=== PATIENT | male | born 1950 | race Caucasian/White ===

== ENCOUNTER → 2023-08-18 08:04 | Outpatient (REF) | payer MEDICARE, BC, SELFPAY | LOC: HWRAD 08:04 | PROVIDERS: ATTENDING PHYSICIAN Physician Assistant; FAMILY PHYSICIAN Family Medicine | DX: N40.1 Benign prostatic hyperplasia with lower urinary tract symptoms (principal) | CPT/HCPCS: 76770 ==

== ENCOUNTER 2024-04-04 14:41 | Emergency (ER) | payer MEDICARE, BC, SELFPAY ==
[2024-04-04 14:49] VITALS: BP 156/98
[2024-04-04 15:32] LABS: % Basophils 0.5 % (0-2); % Eosinophils 0.2 % (0-6); % Lymphocytes 30.6 % (20.5-51.1); % Monocytes 5.7 % (1.7-9.3); Absolute Basophils 0.1 10^3/uL (0-0.2); Absolute Immature Granulocytes 0.2 10^3/uL (0-0.05); Absolute Lymphocytes 4.9 10^3/uL (1.2-3.4); Absolute Monocytes 0.9 10^3/uL (0.1-0.6); Hematocrit 48.4 % (39.0-52.0); Hemoglobin 16.3 g/dL (13.0-18.0); Mean Corp Hgb Conc. 33.7 g/dL (33.0-37.0); Mean Corpuscular Hgb 31.1 pg (27.0-31.0); Mean Corpuscular Volume 92.4 fL (80.0-94.0); Mean Platelet Volume 10.5 fL (7.4-10.4); Nucleated Red Blood Cells % 0 % (-); Platelet Count 294 10^3/uL (130-400); Red Blood Cell Count 5.24 10^6/uL (4.70-6.10); Red Cell Dist. Width 12.5 % (11.5-14.5); White Blood Cell Count 16.1 10^3/uL (4.8-10.8)
[2024-04-04 15:38] LABS: ALT (SGPT) 48 U/L (0-50); AST (SGOT) 32 U/L (17-59); Albumin 4.6 g/dl (3.5-5.0); Alkaline Phosphatase 87 U/L (38-126); Blood Urea Nitrogen 19 mg/dl (9-20); Carbon Dioxide 28 mmol/L (22-30); Chloride 103 mmol/L (98-107); Glucose 166 mg/dl (70-99); Potassium 4.1 mmol/L (3.5-5.1); Sodium 141 mmol/L (135-145); Total Bilirubin 0.7 mg/dl (0.2-1.3); Total Protein 6.8 g/dl (6.3-8.2); eGFR > 60.00
[2024-04-04 16:06] LABS: TSH Reflex To Free T4 1.92 uIU/ml (0.47-4.68)
[2024-04-04 16:13] VITALS: BP 166/91
--- NOTE | 2024-04-04 18:29 | ED.GENMED ---
History of Present Illness
General
Chief Complaint: Heart Rate Problem
Source: patient
Exam Limitations: none
Time Seen by Provider: 04/04/24 17:58
History of Present Illness
History of Present Illness:
73-year-old male presents with palpitations. He noticed it today getting worse. He has been dealing with similar sensation but not as frequent. He sees cardiology and is on atenolol 25 mg twice a day. He also is having difficulties with his
prostate. He states he is getting up 8 times at night to urinate. He is currently on a steroid prescribed by the urologist help inflammation of his prostate. He states is not helping. He states once he started feeling increased palpitations he
started to get worked up and he checked his blood pressure and his blood pressure was elevated at 200 systolic. There is no chest pain. He denies any shortness of breath. No leg swelling. No fevers. He states waiting in the waiting room he felt
better. He still is feeling the palpitations however.
Past History
Past History
ED Past Medical History: Arrthythmia, GERD and Other (BPH)
ED Past Surgical History: Orthopedic
Social History
Tobacco: Non-smoker
Alcohol: None
Drug: None
Personal:
Living: with family
Phy Exam
Physical Exam
Physical Exam:
General: Well-appearing male slightly anxious no acute respiratory distress
HEENT: Normocephalic atraumatic
Heart: Regular rate and rhythm no murmurs
Lungs: Clear no wheeze
Abdomen is soft nontender nondistended no guarding or rebound normal bowel sounds
Extremities: No cyanosis or edema
Skin is warm no rash
Course
Orders/Labs/Results
Orders:
Orders
04/04/24 14:42
Electrocardiogram (*1) Urgent
Reason for Study: Palpitations
EKG- Treatment ONCE
04/04/24 15:08
Complete Blood Count/With Diff Urgent
Comprehensive Metabolic Panel Urgent
TSH Reflex To Free T4 Urgent
Abnormal Lab Results
04/04/24
15:08
WBC 16.1 H 10^3/uL
(4.8-10.8)
MCH 31.1 H pg
(27.0-31.0)
MPV 10.5 H fL
(7.4-10.4)
Abs Immat Gran (auto) 0.2 H 10^3/uL
(0-0.05)
Absolute Neuts (auto) 10.0 H 10^3/uL
(1.4-6.5)
Absolute Lymphs (auto) 4.9 H 10^3/uL
(1.2-3.4)
Absolute Monos (auto) 0.9 H 10^3/uL
(0.1-0.6)
Immature Gran % 1.0 H %
(0-0.5)
Glucose 166 H mg/dl
(70-99)
04/04/24 15:08
04/04/24 15:08
Vital Signs
Initial and Last Documented VS:
Initial Vital Signs
Temp Pulse Resp BP Pulse Ox
98.4 F 73 18 156/98 98
04/04/24 14:49 04/04/24 14:49 04/04/24 14:49 04/04/24 14:49 04/04/24 14:49
Last Documented Vital Signs
Temp Pulse Resp BP Pulse Ox
98.5 F 54 18 166/91 96
04/04/24 16:13 04/04/24 16:13 04/04/24 16:13 04/04/24 16:13 04/04/24 16:13
MDM/Problems Addressed
Differential Diagnosis Includes:
Patient with palpitations. He started getting worked up and noticed his blood pressure being elevated at home 2. Blood pressure at triage noted and improved from at home. EKG shows sinus rhythm with PVC. While in the room on the monitor he
describes his palpitation at the same time a PVC shows up on the monitor. The PVCs are infrequent. I believe that is what he is feeling. There is no ischemic changes noted on the EKG. Labs reviewed white count of 16 but nonspecific. Otherwise
electrolytes are good TSH is normal Long discussion with patient. I see no imminent signs of concern. Explained what he is feeling are the PVCs.
He feels better. Will advise any follow-up with smearer. He is currently on atenolol twice a day advise he continue this.
*Critical Care Note
Total Time (30-74mins, 75-104mins- exclusive of procedures): Not Applicable
ED Attending Note
-
Portions of this chart may have been created with voice recognition software.� Occasional wrong word or��sound alike� substitutions may have occurred due to the inherent limitations of voice recognition software.
Discharge Plan
Departure
Patient Disposition: Home (Routine Discharge)
Date of Disposition: 04/04/24
Time of Disposition: 18:37
Patient with high blood pressure during this ER visit?: No
Discharge Problem:
Palpitations
Instructions: Palpitations (DC)
Prescriptions:
No Action
latanoprost 1 DROP drops
1 drp LEFT EYE DAILY
esomeprazole magnesium [Nexium] 40 MG capsule,delayed release(DR/EC)
40 mg PO BID
atenolol 50 MG tablet
50 mg PO BID
cyclosporine [Restasis] 10 DROPS dropperette
1 drp BOTH EYES BID
sennosides [senna] 1 TABLET tablet
2 tab PO BID Qty: 0 0RF
acetaminophen 325 MG tablet
650 mg PO Q4HPRN PRN (Reason: MILD PAIN OR HEADACHE) Qty: 0 0RF
magnesium hydroxide 30 ML suspension
30 ml PO HSPRN PRN (Reason: constipation) Qty: 0 0RF
aspirin 325 MG tablet,delayed release (DR/EC)
325 mg PO DAILY Qty: 0 0RF
tamsulosin 0.4 MG capsule
2 tab PO DAILY Qty: 0 0RF
docusate sodium 100 MG capsule
100 mg PO BID Qty: 0 0RF
oxycodone 5 MG tablet
1 - 2 tab PO Q4HPRN PRN (Reason: pain) Qty: 90 0RF
Activity Restrictions/Additional Instructions:
Continue current medications. Stay hydrated. Follow-up with your urologist and smearer. Return if worse otherwise
Interventions
Interventions:
*Risk Screen - Suicide Last Done: 04/04/24 14:49
*General Assessment Last Done: 04/04/24 14:49
*Neglect/Abuse Screening Last Done: 04/04/24 14:49
Discharge Date and Time
Print Language: POLISH
== END 2024-04-04 18:58 | disposition home or self-care (01) ==
LOC: EMR 14:41
PROVIDERS: EMERGENCY PHYSICIAN Student in an Organized Health Care Education/Training Program; FAMILY PHYSICIAN Family Medicine
DX: R00.2 Palpitations (principal)
CPT/HCPCS: 99284; 80053; 84443; 85025; 93005

== ENCOUNTER → 2024-06-14 07:15 | Outpatient (REF) | payer MEDICARE, BC, SELFPAY | LOC: MRI 07:15 | PROVIDERS: ATTENDING PHYSICIAN Urology | DX: R97.20 Elevated prostate specific antigen [PSA] (principal) | CPT/HCPCS: 72197; A9575 ==

== ENCOUNTER → 2024-07-10 15:40 | Outpatient (REF) | payer MEDICARE, BC, SELFPAY | LOC: REG 15:40 | PROVIDERS: ATTENDING PHYSICIAN Urology | DX: R97.20 Elevated prostate specific antigen [PSA] (principal) | CPT/HCPCS: 88305 ==

== ENCOUNTER 2024-08-02 00:05 | Emergency (ER) | payer MEDICARE, BC, SELFPAY ==
[2024-08-02 00:06] VITALS: BP 172/95
--- NOTE | 2024-08-02 00:39 | ED.GENMED ---
History of Present Illness
General
Chief Complaint: Male Genito-Urinary Symptoms
Source: patient and spouse
Time Seen by Provider: 08/02/24 00:25
History of Present Illness
History of Present Illness:
This patient is a 73-year-old male presents emergency department with complaints of feeling like he is not fully emptying his bladder. He was recently diagnosed with state cancer and was given a self catheterization kit to be used as needed at
home. Tonight he says that he tried to insert the catheter and eventually was able to successfully insert it. He noted that the return was consistent with about a cup worth of blood. This was without clots. He is not on blood thinning
medication. He remove the catheter and states that since then he has urinated 'drops of pink'. He denies fever, chills, chest pain, shortness of breath, flank or back pain, abdominal pain, or other complaints.
Past History
Past History
ED Past Medical History: Arrthythmia, GERD, HTN and Other (BPH, prostate CA, glaucoma)
ED Past Surgical History: Orthopedic and Other (Eye, sinus, hernia)
Social History
Tobacco: Former smoker
Alcohol: None
Drug: None
Personal:
Living: with family
Phy Exam
Physical Exam
Physical Exam:
GENERAL: Alert , in no apparent distress
EYE: pupils equal and reactive
NECK: Supple, no significant adenopathy.
ENT: o/p clr, mmm.
CARDIAC: Regular rate and rhythm .
LUNGS: Clear breath sounds bilaterally, no acute respiratory distress, no wheezes/rales/rhonchi
ABDOMEN: Soft, without focal tenderness, no r/g, no cvat
NEUROLOGICAL: Alert and oriented, no focal neuro deficits
SKIN: Warm and dry, skin intact.
MUSCULOSKELETAL: No edema, well perfused.
PSYCH: Normal and appropriate interaction.
: no swelling/lesions/bleeding noted
Course
Orders/Labs/Results
Orders:
Orders
08/02/24 00:39
Bladder Scan- Treatment ONCE
Vital Signs
Initial and Last Documented VS:
Initial Vital Signs
Temp Pulse Resp BP Pulse Ox
98.5 F 87 16 172/95 99
08/02/24 00:06 08/02/24 00:06 08/02/24 00:06 08/02/24 00:06 08/02/24 00:06
Last Documented Vital Signs
Temp Pulse Resp BP Pulse Ox
98.5 F 87 16 172/95 99
08/02/24 00:06 08/02/24 00:06 08/02/24 00:06 08/02/24 00:06 08/02/24 00:06
Update Note
Update Note:
Patient presents to the Emergency Department with blood from urinary catheter
Number and Complexity of Problems Addressed at the Encounter
� Chronic conditions affecting care:
� Acute Exacerbation and/or Progression of Chronic Illness:
� Differential Diagnosis includes: But not limited to urinary retention, clots in bladder infection, etc. etc.
Amount and/or Complexity of Data to be Reviewed and Analyzed
� I performed an independent evaluation of and my interpretation is:
EKG:
CT:
Xrays:
Laboratory Studies:
Other:
� Review of other/old records reveals:
� Clinical information was obtained by an independent historian: who is bedside
� Prescriptions/Medications Considered but not given:
� Further testing considered but not performed:
Risk of Complications and/or Morbidity or Mortality of Patient Management
� Social determinants of health affecting care:
� Discussion with other providers (PCP, Hospitalists, Consultants, etc):
� Escalation of care including admission/observation vs risk of discharge considered:bladder scan negative for retained urine. Long d/w pt...no indiation for Vinson catheter at this time as he is not retaining (he urinated s/p his
straight cath at home). He is very scared regarding his diagnosis (understandably) and PET scan in AM. He worried that blood tonight was signaling that he had perforated his bladder. I do not find s/sxs to sugggest this, although he says ruq
feels a little uncomfortable, his abd exam is benign, nontender, no r/g. etc. D/w him import of f/u with uro in am for further guidance. Of note, he had blood (mild) noted when cath was done in office last week also.
ED Attending Note
-
Portions of this chart may have been created with voice recognition software.� Occasional wrong word or��sound alike� substitutions may have occurred due to the inherent limitations of voice recognition software.
Discharge Plan
Departure
Patient Disposition: Home (Routine Discharge)
Date of Disposition: 08/02/24
Time of Disposition: 01:06
Patient with high blood pressure during this ER visit?: Yes
Condition: Good
Discharge Problem:
Hematuria
Instructions: Blood in the Urine (Hematuria), Adult (DC), BLOOD PRESSURE
Prescriptions:
No Action
latanoprost 1 DROP drops
1 drp LEFT EYE DAILY
esomeprazole magnesium [Nexium] 40 MG capsule,delayed release(DR/EC)
40 mg PO BID
atenolol 50 MG tablet
50 mg PO BID
cyclosporine [Restasis] 10 DROPS dropperette
1 drp BOTH EYES BID
sennosides [senna] 1 TABLET tablet
2 tab PO BID Qty: 0 0RF
acetaminophen 325 MG tablet
650 mg PO Q4HPRN PRN (Reason: MILD PAIN OR HEADACHE) Qty: 0 0RF
magnesium hydroxide 30 ML suspension
30 ml PO HSPRN PRN (Reason: constipation) Qty: 0 0RF
aspirin 325 MG tablet,delayed release (DR/EC)
325 mg PO DAILY Qty: 0 0RF
tamsulosin 0.4 MG capsule
2 tab PO DAILY Qty: 0 0RF
docusate sodium 100 MG capsule
100 mg PO BID Qty: 0 0RF
oxycodone 5 MG tablet
1 - 2 tab PO Q4HPRN PRN (Reason: pain) Qty: 90 0RF
Referrals:
NONE,* [Family Provider] -
Fabrizio Brown MD [Active] - Tomorrow
Activity Restrictions/Additional Instructions:
PLEASE CONTACT YOUR UROLOGIST LATER TODAY. IF YOU DEVELOP FEVER, ABDOMINAL PAIN, CHEST PAIN, TROUBLE BREATHING, BLEEDING, BACK PAIN, INABILITY TO URINATE, OR OTHER WORRISOME SIGNS, GO TO THE ER IMMEDIATELY!
Interventions
Interventions:
*Risk Screen - Suicide Last Done: 08/02/24 00:06
*General Assessment Last Done: 08/02/24 00:06
*Neglect/Abuse Screening Last Done: 08/02/24 00:06
*ED- Fall Risk Assessment Last Done: 08/02/24 00:53
*ED COVID-19 Vaccine History Last Done: 08/02/24 00:06
ED-Male Genitourinary Assessment Last Done: 08/02/24 00:53
Discharge Date and Time
Print Language: SYRIAN
[2024-08-02 01:10] VITALS: BP 147/87
== END 2024-08-02 01:11 | disposition home or self-care (01) ==
LOC: EMR 00:05
PROVIDERS: EMERGENCY PHYSICIAN Emergency Medicine
DX: R31.9 Hematuria, unspecified (principal); K21.9 Gastro-esophageal reflux disease without esophagitis; I10 Essential (primary) hypertension; N40.0 Benign prostatic hyperplasia without lower urinary tract symptoms; Z87.891 Personal history of nicotine dependence
CPT/HCPCS: 99282

== ENCOUNTER → 2024-10-12 10:01 | Outpatient (REF) | payer MEDICARE, BC, SELFPAY | LOC: MRI 3T 10:01 | PROVIDERS: ATTENDING PHYSICIAN Internal Medicine; FAMILY PHYSICIAN Urology | DX: C61 Malignant neoplasm of prostate (principal); C79.51 Secondary malignant neoplasm of bone | CPT/HCPCS: 72156; A9575 ==

== ENCOUNTER → 2024-10-24 07:25 | Outpatient (REF) | payer MEDICARE, BC, SELFPAY ==
[2024-10-24 08:55] LABS: Hematocrit 41.6 % (39.0-52.0); Hemoglobin 14.3 g/dL (13.0-18.0); Mean Corp Hgb Conc. 34.4 g/dL (33.0-37.0); Mean Corpuscular Volume 93.5 fL (80.0-94.0); Platelet Count 211 10^3/uL (130-400); Red Cell Dist. Width 12.8 % (11.5-14.5)
[2024-10-24 09:49] LABS: Blood Urea Nitrogen 16 mg/dl (9-20); Calcium 9.4 mg/dl (8.4-10.2); Carbon Dioxide 30 mmol/L (22-30); Chloride 107 mmol/L (98-107); Glucose 101 mg/dl (70-99); Potassium 3.7 mmol/L (3.5-5.1); Sodium 142 mmol/L (135-145); eGFR > 60.00
== END ==
LOC: SDSPAT 07:25
PROVIDERS: ATTENDING PHYSICIAN Urology; FAMILY PHYSICIAN Family Medicine
DX: Z01.818 Encounter for other preprocedural examination (principal)
CPT/HCPCS: 36415; 80048; 85027; 93005

== ENCOUNTER 2024-11-01 06:30 | Day surgery (SDC) | payer MEDICARE, BC, SELFPAY ==
[2024-10-24 14:08] VITALS: BMI 35.4
[2024-11-01] VITALS (12 sets, daily range): BP systolic 97–133; BP diastolic 62–81; BMI 35.4
[2024-11-01] MEDS: NORMOSOL-R/PLASMALYTE-A 1000 IV (10:46)
--- NOTE | 2024-11-01 16:00 | PTCARENOTE ---
pt admitted to 2S rm 2117 at 1430 from PACU via bed. pt arrived awake and alert. admission database and assessment completed as documented. pt oriented to post op plan of care, environment and call lopez with verbalized understanding.
[2024-11-01] MEDS: NSS 1000 IV ×2 (17:13→23:23)
[2024-11-01] MEDS: FLOMAX 0.4 MG PO (17:14)
[2024-11-01] MEDS: XALATAN OPHTHALMIC SOLUTION 1 DROP OPHTH (21:36)
[2024-11-01] MEDS: SENOKOT 17.2 MG PO (21:38)
[2024-11-02 03:33] VITALS: BP 130/86
[2024-11-02 07:28] LABS: Hematocrit 39.7 % (39.0-52.0); Hemoglobin 13.9 g/dL (13.0-18.0); Mean Corp Hgb Conc. 35.0 g/dL (33.0-37.0); Mean Corpuscular Volume 92.5 fL (80.0-94.0); Platelet Count 226 10^3/uL (130-400); Red Cell Dist. Width 12.8 % (11.5-14.5)
[2024-11-02 07:30] VITALS: BP 126/71
[2024-11-02 07:32] LABS: Blood Urea Nitrogen 12 mg/dl (9-20); Calcium 8.8 mg/dl (8.4-10.2); Carbon Dioxide 26 mmol/L (22-30); Chloride 111 mmol/L (98-107); Estimated Creatinine Clearance 107 ml/min; Glucose 118 mg/dl (70-99); Potassium 4.1 mmol/L (3.5-5.1); Sodium 142 mmol/L (135-145); eGFR > 60.00
[2024-11-02] MEDS: DELTASONE 5 MG PO (07:37)
[2024-11-02] MEDS: NON-FORMULARY ITEM 1000 MG PO (07:37)
--- NOTE | 2024-11-02 08:55 | W.PN.URO.CBU ---
Today's Communication / Plan
-
TOV
Discharge
Assessment / Plan
-
74M with locally metastatic prostate cancer
significant obstructive sx
s/p TURP
- Remove tirado for trial of void
- Likely discharge today
Diagnosis
-
Date of Service: November 02, 2024
-
Patient Diagnosis:
Prostate cancer
LUTS
BPH
Post Op Day:
Subjective
-
feeling well
No issues overnight
no bleeding
Objective
-
Vital Signs
Temp Pulse Resp BP Pulse Ox
98.6 F 62 16 126/71 96
11/02/24 07:30 11/02/24 07:30 11/02/24 07:30 11/02/24 07:30 11/02/24 07:30
Intake and Output
11/01/24 11/02/24 11/03/24
06:59 06:59 06:59
Intake Total 440 / 440
Output Total 1450 / 1450
Balance -1010 / -1010
Intake:
Oral fluids 240 / 240
IV fluids (Total) 200 / 200
Normosol 200 / 200
Output:
True Urine Output from [facility] 1450 / 1450
Laboratory Results
11/02/24 06:36
11/02/24 06:36
Physical Exam
-
General - well developed, well nourished, no acute distress
Chest - clear bilaterally
Abdomen - soft, non-tender, positive bowel sounds, no CVAT, no incisional pain or distention
Tirado in place, clear urine off cbi
[2024-11-02] MEDS: NSS 1000 IV (09:25)
--- NOTE | 2024-11-02 10:05 | CM ---
Reviewed the chart notes and spoke with the patient and spouse at the bedside. The patient resides with his spouse in a two story home with 15 steps to enter. The patient reports no DME or SNF in the past. Patient reported has had VN services
in past. The patient confirmed his [facility] of choice [facility]. CM continues to be available to patient/family and is monitoring medical plan for needs at discharge.
Plan: Discharge to home when medically stable. No needs anticipated at this time. Alisson removed.
[2024-11-02] MEDS: FLOMAX 0.4 MG PO (11:50)
[2024-11-02 12:33] VITALS: BP 125/77
== END 2024-11-02 14:16 | disposition home or self-care (01) ==
LOC: SDS 06:30
PROVIDERS: ATTENDING PHYSICIAN Urology; FAMILY PHYSICIAN Family Medicine
DX: N40.1 Benign prostatic hyperplasia with lower urinary tract symptoms (principal); R39.12 Poor urinary stream
CPT/HCPCS: 52601; 80048; 85027